=== PATIENT | female | born 1995 | race Two or more races ===

== ENCOUNTER 2024-07-13 15:48 | Emergency (ER) | payer OTHER ==
[2024-07-13 15:57] VITALS: BP 110/69; PULSE 81; RESP 18; TEMP 98.2
[2024-07-13] MEDS ORDERED: AMOX TR/POT CLAV 875MG/125MG TABLETS (FP) ONE (17:24)
[2024-07-13] MEDS ORDERED: DIPHTH,PERTUSS(ACELL),TET 0.5 ML DISP.SYRIN IM ONE (17:25)
[2024-07-13] MEDS: DIPHTH,PERTUSS(ACELL),TET 0.5 ML DISP.SYRIN IM ONE (17:32)
[2024-07-13] MEDS: AMOX TR/POT CLAV 875MG/125MG TABLETS (FP) PO ONE (17:33)
== END 2024-07-13 18:14 | disposition home or self-care (01) ==
LOC: JERFT 15:48
PROC: 3E0234Z Introduction of Serum, Toxoid and Vaccine into Muscle, Percutaneous Approach (ICD-10-PCS; principal; 2024-07-13)
DX: S91.351A Open bite, right foot, initial encounter (principal); W55.01XA Bitten by cat, initial encounter; Z23 Encounter for immunization
CPT/HCPCS: 90471; 90715; 99284-25